=== PATIENT | female | born 1970 | race Two or more races ===

== ENCOUNTER 2023-06-09 09:49 | Emergency (ER) | payer MEDICAID ==
[~2023-06-09] VITALS: Ht 162.6 cm; Wt 123.8 kg
[2023-06-09] MEDS ORDERED: CEFD300C2 PO ×3 (17:49→18:01)
[2023-06-09 17:58] VITALS: BP 139/70; PULSE 88; RESP 17; TEMP 98.7; O2SAT 95
== END 2023-06-09 18:02 | disposition home or self-care (01) ==
LOC: ER 09:49
DX: S31.101A Unspecified open wound of abdominal wall, left upper quadrant without penetration into peritoneal cavity, initial encounter (principal); F17.210 Nicotine dependence, cigarettes, uncomplicated; Z90.49 Acquired absence of other specified parts of digestive tract; W18.39XA Other fall on same level, initial encounter; Y93.89 Activity, other specified; Y92.89 Other specified places as the place of occurrence of the external cause; Y99.8 Other external cause status